=== PATIENT | male | born 1980 | race Caucasian/White ===

== ENCOUNTER 2020-06-06 03:22 | Emergency (ER) | payer MEDICAID ==
[~2020-06-06] VITALS: Ht 175.3 cm; Wt 100.0 kg
[2020-06-06] MEDS ORDERED: METOPROLOL TARTRATE 25 MG TAB PO ONE (03:30)
[2020-06-06] MEDS ORDERED: PLEASE ENTER ALLERGIES MC SCH (03:30)
--- NOTE | 2020-06-06 03:36 | NUR ---
PATIENT STATING 9/10 CHEST PAIN RADIATING TO NECK AND LEFT SHOULDER THAT STARTED 3 HOURS AGO. PATIENT STATES HAVING 2 HEART ATTACKS, AND 2 STENTS PLACED IN THE PAST. PATIENT STATES REFUSING TO TAKE ALL MEDS PRESCRIBED TO HIM. STATES THAT "I DO NOT LIKE DOCTORS OR HOSPITALS". IV ATTEMPTED, 18 IN RT AC PLACED WITH PART OF CATH OUT. ERP AT BEDSIDE.
[2020-06-06] MEDS ORDERED: KETOROLAC 30 MG/1 ML ONE (03:47)
[2020-06-06] MEDS ORDERED: ASPIRIN 81 MG TABLET EC ONE (03:47)
[2020-06-06] MEDS ORDERED: LORazepam 2 MG/ML, 1ML ONE (03:49)
[2020-06-06] MEDS ORDERED: ASPIRIN 81 MG TABLET CHEW PO ONE (04:00)
[2020-06-06] MEDS ORDERED: LORazepam 2 MG/ML, 1ML IVPush ONE (04:00)
[2020-06-06] MEDS ORDERED: KETOROLAC 30 MG/1 ML IVPush ONE (04:00)
[2020-06-06] MEDS ORDERED: SODIUM CHLORIDE FLUSH 10ML SYR IVF ONE (04:00)
[2020-06-06 04:02] LABS: BASOPHILS # (AUTO) 0.07 x10^3/uL (0-0.1); BASOPHILS % (AUTO) 1 % (0-1); EOSINOPHILS # (AUTO) 0.08 x10^3/uL (0-0.4); EOSINOPHILS % (AUTO) 1 % (1-7); LYMPHOCYTES # (AUTO) 2.31 x10^3/uL (1-3.4); LYMPHOCYTES % (AUTO) 18 % (22-44); MD NO; MEAN CORPUSCULAR HEMOGLOBIN 26.6 pg (27.5-34.5); MEAN CORPUSCULAR HGB CONC 32.4 g/dL (33.2-36.2); MEAN CORPUSCULAR VOLUME 81.9 fL (81-97); MEAN PLATELET VOLUME 7.7 fL (7.4-10.4); MONOCYTES # (AUTO) 0.61 x10^3/uL (0.2-0.8); MONOCYTES % (AUTO) 5 % (2-9); NEUTROPHILS # (AUTO) 9.57 x10^3/uL (1.8-6.8); NEUTROPHILS % (AUTO) 76 % (42-75); PLATELET COUNT 347 x10^3/uL (130-400); RED BLOOD COUNT 5.33 x10^6/uL (4.38-5.82); RED CELL DISTRIBUTION WIDTH 13.6 % (9.4-14.8)
[2020-06-06] MEDS ORDERED: ASPIRIN 81 MG TABLET CHEW ONE (04:04)
[2020-06-06 04:06] LABS: ANION GAP 7 mmol/L (5-15); CALCIUM 7.9 mg/dL (8.5-10.1); CHLORIDE 111 mmol/L (98-107); CREATININE 1.05 mg/dL (0.7-1.3)
[2020-06-06 04:07] LABS: ALANINE AMINOTRANSFERASE 66 U/L (12-78); ALBUMIN 3.4 g/dL (3.4-5.0)
[2020-06-06 04:11] LABS: ALKALINE PHOSPHATASE 64 U/L (45-117); BILIRUBIN,TOTAL 0.4 mg/dL (0.2-1.0); TOTAL PROTEIN 6.8 g/dL (6.4-8.2); TROPONIN I 0.015 ng/mL (0.000-0.045)
--- NOTE | 2020-06-06 04:19 | NUR ---
PATIENT MEDICATED PER EMAR FOR PAIN AND ANXIETY. EJ IV PLACED, PATIENT DOZING IN BED, SAFTEY MEASURES IN PLACE
--- NOTE | 2020-06-06 04:40 | NUR ---
PATIENT'S 02 SATS DROPPING, PLACED ON 2L NC. ASKED PATIENT TO PROVIDE URINE SAMPLE AND PATIENT STATES HE IS UNABLE TO AT THIS TIME. WILL FOLLOW UP.
[2020-06-06] MEDS ORDERED: OMNIPAQUE 350 MG/ML, 100ML BOTTLE ONE (05:21)
--- NOTE | 2020-06-06 05:33 | NUR ---
PATIENT TAKEN OFF 02, PATIENT SATURATIONS IN 90'S WHEN AWAKE AND WHEN PATIENT FALLS ASLEEP HE STARTS TO DESAT. PATIENT SHOWING S/S OF POSSIBLE SLEEP APNEA. ERP UPDATED.
--- NOTE | 2020-06-06 05:55 | NUR ---
PATIENT HAVING VARABLE 02 SATURATION WHILE SLEEPING. PLACED BACK ON 2L 02
--- NOTE | 2020-06-06 06:56 | NUR ---
i am assumimng care of this pt from negrito (rn) at this time. sbar report was exchanged at the bedside.
[2020-06-06 07:31] VITALS: BP 101/74
== END 2020-06-06 07:33 | disposition home or self-care (01) ==
LOC: ED 04:50
DX: R07.89 Other chest pain (principal); F15.129 Other stimulant abuse with intoxication, unspecified; R00.0 Tachycardia, unspecified; J81.0 Acute pulmonary edema; I49.3 Ventricular premature depolarization; I25.2 Old myocardial infarction; R11.2 Nausea with vomiting, unspecified; I25.10 Atherosclerotic heart disease of native coronary artery without angina pectoris; Z72.9 Problem related to lifestyle, unspecified; Z95.9 Presence of cardiac and vascular implant and graft, unspecified
CPT/HCPCS: 36415; 71045; 71275; 80053; 83690; 83880; 84484; 85025; 85379; 93005; 96374; 96375; 99285; J1885; J2060; Q9967